=== PATIENT | female | born 1995 | race Hispanic/Latino ===

== ENCOUNTER 2019-02-22 17:10 | Day surgery (SDC) | payer OTHER ==
[2019-02-22 17:48] VITALS: BMI 38.3
[2019-02-22] MEDS ORDERED: hydrALAZINE 20 MG/ML VIAL SLOW IVP PRN (18:29)
--- NOTE | 2019-02-22 19:07 | PDOC.FPROB ---
FMR OB H&P: HPI - History of Present Illness Chief Complaint: Contractions History of Present Illness: Pt is a 23 yo at 38.3 wks by LMP that is consistent with 10.1 wks. says this morning at around 9 am she started having contractions that were 5-10 minutes a part. She said she also experienced some Mid-epigastric pain that felt like a tightening that comes and goes. The contractions went away, but came back later this afternoon and the pt felt like they were 3 minutes apart. She denies any leakage of fluid or blood, but reports mucus. She reports good movement. GBS neg. Primary Care Physician: Yina FMR OB H&P: Current - Care : 1 Para: 0 Gestational age: 38.3 Due date: 03/05/19 Dating Criteria: LMP consistent with US at 10.1 wks. Total weight gain: 25 - OB Labs Blood type: A RH: positive HIV: negative RPR: negative HepBsAg: negative Rubella: non-immune Gonorrhea: negative Chlamydia: negative 1 hour gtt: 94 FMR OB H&P: History - Past Medical History PMH: None - Surgical History Sx History: None - Social History Social History: She does not smoke, drink, or use any recreational drugs. - Family History Family History: None FMR OB H&P: Medications - Current Home Medications: Medication Instructions Recorded Confirmed Type [id number]/Iron Fum/Folic/Docusate 1 tab PO DAILY 02/22/19 02/22/19 History [ 19] Allergies/Adverse Reactions: Allergies Allergy/AdvReac Type Severity Reaction Status Date / Time No Known Allergies Allergy Unverified 02/22/19 17:45 FMR OB H&P: ROS - Review of Systems General: denies: fever/chills Eyes: denies: vision changes ENT: denies: rhinorrhea Cardiovascular: denies: chest pain Respiratory: denies: cough, shortness of breath Gastrointestinal: reports: abdominal pain. denies: nausea, vomiting, diarrhea, constipation Genitourinary (Female): reports: vaginal discharge. denies: dysuria, vaginal bleeding Musculoskeletal: denies: pain Neurologic: denies: numbness, weakness, headache Integumentary: denies: itching, rash Endocrine: denies: cold intolerance Hematologic/Lymphatic: denies: enlarged lymph nodes FMR OB H&P: Vital Signs - Maternal Vital signs: HR: 89 BP: 117/71 Temp: 98 - Heart Tones Baseline: 140 Variability: moderate Acceleration: present Deceleration: absent Category: category 1 FMR OB H&P: Physical Exam - Physical Exam General: NAD HEENT: normocephalic and atraumatic, PERRLA, MMM Neck: supple Chest: non-tender to palpation Heart: RRR, normal S1/S2 General: CTAB, no respiratory distress Abdomen: soft, bowel sound present Deviation from normal: TTP in mid epigastric region, negative mtz's, no rebound or guarding Neurological: cranial nerves II through XII intact, strength +5 Skin: no rash Lymphatic: no unusual bruising or bleeding Psychiatric: normal mood and affect FMR OB H&P: A/P - Problem List (1) Abdominal pain Status: Acute Code(s): R10.9 - UNSPECIFIED ABDOMINAL PAIN Qualifiers: Abdominal location: epigastric Qualified Code(s): R10.13 - Epigastric pain Disposition: Pt is a 23 yo at 38.3 wks by LMP consistent with US at 10.1 wks who presents with abdominal pain and contractions. 1. Abdominal Pain Most likely from contractions * Epigastric tightening sensation that comes and goes * FHT baseline was 140 and cat I with contractions >10 minutes apart * Cerical Check: 0/0/-2 * Discussed with pt indications for coming back to the ER -loss of fluid -bleeding -contractions every 3-5 minutes for at least an hour -decreased movement D/C home Discussion: Date/Time: 02/22/191904 This H&P was discussed with [] and [] who agree with the above documentation and plan.
== END 2019-02-22 19:47 | disposition home or self-care (01) ==
LOC: L&D/OP 17:10
PROVIDERS: ATTEND Student in an Organized Health Care Education/Training Program
DX: O99.89 Other specified diseases and conditions complicating pregnancy, childbirth and the puerperium (principal); R10.13 Epigastric pain; Z3A.38 38 weeks gestation of pregnancy
CPT/HCPCS: 99282

== ENCOUNTER 2019-03-07 02:17 | Day surgery (SDC) | payer OTHER ==
[2019-03-07 02:48] VITALS: BMI 38.7
--- NOTE | 2019-03-07 04:17 | PDOC.FPROB ---
FMR OB H&P: HPI - History of Present Illness Chief Complaint: Contractions Indentification: 23 @ 40.2 by 10.1 US History of Present Illness: Presents to L&D w/ complaint of painful contractions. Pt stated that at 2000 last night she developed lower aching back pain. Then around 0000 this am she woke up with painful contractions. She tried to take a warm bath but felt that this actually worsened the contractions and they began to get closer together prompting her to come in for evaluation. Pt rates her pain at 9/10 w/ contractions and 7/10 between them, describing it as an achy pain in her lower abdomen and back. Pt was last seen by her PCP 3 days ago and was closed thick and high at that time. Pt states her has been uncomplicated. Pt did have a positive chlamydia early in with subsequent negative test of cure. Pt denies any vaginal bleeding, discharge, signs of SROM, recent trauma. Primary Care Physician: Stephanie LU FMR OB H&P: Current - Care : 1 Para: 0 Gestational age: 40.2 Due date: 03/05/2019 Dating Criteria: LMP consistent w/ 10.1wk sono Total weight gain: 25 Course/Complications: +Chlamydia w/ subsequent negative test of cure - OB Labs Blood type: A RH: positive HIV: negative RPR: negative HepBsAg: negative Rubella: non-immune Gonorrhea: negative Chlamydia: negative 1 hour gtt: 94 GBS: negative FMR OB H&P: History - Past Medical History PMH: None - Surgical History Sx History: None - Social History Social History: Denies tobacco, alcohol, or drug use - Family History Family History: Non contributory FMR OB H&P: Medications - Current Home Medications: Medication Instructions Recorded Confirmed Type [id number]/Iron Fum/Folic/Docusate 1 tab PO DAILY 02/22/19 03/07/19 History [ 19] Allergies/Adverse Reactions: Allergies Allergy/AdvReac Type Severity Reaction Status Date / Time No Known Allergies Allergy Verified 03/07/19 02:45 FMR OB H&P: ROS - Review of Systems General: denies: recent trauma Eyes: denies: vision changes, double vision Cardiovascular: reports: edema. denies: chest pain Respiratory: denies: shortness of breath Gastrointestinal: reports: abdominal pain. denies: nausea, vomiting, diarrhea Genitourinary (Female): reports: contractions. denies: vaginal discharge, vaginal pain, vaginal bleeding Musculoskeletal: denies: pain, tenderness Neurologic: denies: weakness, headache Integumentary: denies: rash, lesions FMR OB H&P: Vital Signs - Maternal Vital signs: BP 130/84 HR 83 - Heart Tones Baseline: 130 Variability: moderate Acceleration: present Deceleration: absent Category: category 1 [place] contractions every: 5 FMR OB H&P: Physical Exam - Physical Exam General: NAD HEENT: normocephalic and atraumatic, no scleral icterus Neck: FROM, no JVD Heart: RRR, normal S1/S2, pulses present, no edema General: CTAB, no respiratory distress, good air movement, no rales/rhonchi, no wheezing Abdomen: soft, gravid Deviation from normal: Mild diffuse tenderness Musculoskeletal: normal gait and station, pulses present, FROM in all four extremities Neurological: sensation to pain,touch and proprioception grossly normal Skin: no rash, capillary refill <2 seconds, no jaundice Lymphatic: no unusual bruising or bleeding Psychiatric: intact recent and remote memory, good judgement and insight, normal mood and affect - Pelvic Exam Henriquez score: 10 FMR OB H&P: A/P - Problem List (1) Term Status: Acute Code(s): Z34.90 - ENCNTR FOR SUPRVSN OF NORMAL , UNSP, UNSP TRIMESTER (2) Uterine contractions Status: Acute Code(s): EZW0393 - Disposition: Term - 40.2 wks -Scheduled for induction 03/09/19 -Uncomplicated course -Check on 03/04/19: Closed, thick, high -Check today: 1 -Will have the pt ambulate and recheck in 2 hours from initial check to see if she is making change. If no change will dc home. If making change will continue to monitor for progression of latent stage of labor. Contractions -Uterine contractions confirmed by toco, occurring q 5 min -Pt complaining of pain w/ these Dispo: Monitor on L&D for progression of latent stage of labor Discussion: Date/Time: 03/07/19 9750 This H&P was discussed with Dr. Nuñez and Dr. Torres who agree with the above documentation and plan. Signature: Jerman Meng D.O. PGY1 Addendum - Attending - Attending Attestation Date/Time: 03/07/19 0802 I personally evaluated the patient and discussed the management with Dr. Meng I agree with the History, Examination, Assessment and Plan documented above with any addition or exceptions noted below- 23 yo @40.2 weeks presented c /o ctx since last night. Denies any LOF, VB. (+) FM. Afebrile VSS. Category 1 FHTs. [place] ctx q3-7 min. SVE /-1. Walked x 2 hours with no cervical change. D/c'd home with labor precautions.
[2019-03-07] MEDS ORDERED: hydrALAZINE 20 MG/ML VIAL SLOW IVP PRN (04:18)
== END 2019-03-07 07:30 | disposition home or self-care (01) ==
LOC: L&D/OP 02:17 → L&D 02:55 → UNDOADMIN 02:55 → UNDODISIN 07:30 → L&D/OP 07:30
PROVIDERS: ATTEND Family Medicine
DX: O47.1 False labor at or after 37 completed weeks of gestation (principal); O48.0 Post-term pregnancy; Z3A.40 40 weeks gestation of pregnancy
CPT/HCPCS: 99283

== ENCOUNTER 2019-03-09 10:53 | Inpatient (IN) | payer OTHER ==
[2019-03-09] MEDS ORDERED: hydrALAZINE 20 MG/ML VIAL SLOW IVP PRN ×2 (11:05→12:53)
[2019-03-09 11:24] VITALS: BMI 38.7
[2019-03-09 12:03] LABS: Amnisure Test RUPTURE DETECTED (No Rupture)
[2019-03-09 12:04] LABS: Amnisure Internal Control QC ACCEPTABLE (ACCEPTABLE)
[2019-03-09] MEDS ORDERED: Methylergonovine 0.2 MG/ML VIAL IM PRN (12:53)
[2019-03-09] MEDS ORDERED: NS / Oxytocin 40 units/1000ml 1,000 ML IV PRN (12:53)
[2019-03-09] MEDS ORDERED: Promethazine HCl 25 MG/ML VIAL IM PRN (12:53)
[2019-03-09] MEDS ORDERED: Acetaminophen 500 MG TAB PO PRN (12:53)
[2019-03-09] MEDS ORDERED: Ondansetron PF 4 MG/2 ML Vial IVP PRN (12:53)
[2019-03-09] MEDS ORDERED: Carboprost 250 MCG/ML AMP IM PRN (12:53)
[2019-03-09] MEDS ORDERED: Ibuprofen 800 MG TAB PO PRN (12:53)
[2019-03-09] MEDS ORDERED: Diphenoxylate HCl/Atropine Tablet PO PRN ×2 (12:53)
[2019-03-09] MEDS ORDERED: Misoprostol 200 MCG TAB PR PRN (12:53)
[2019-03-09] MEDS ORDERED: Lidocaine 1% (PF) 30 ML VIAL SC PRN (12:53)
--- NOTE | 2019-03-09 12:53 | PDOC.FPROB ---
FMR OB H&P: HPI - History of Present Illness Chief Complaint: contractions History of Present Illness: 23 yo @ 40.4 wks presents for contractions. Reports contractions began at 0200 this am. Pt unsure how frequent but mother reports they were q5-7 min. Has had one contraction since on L&D. Patient also reports clear fluid running down leg while on L&D at 11:15. Denies vaginal discharge, bleeding. Feels FM. Legs and hands swollen which has been consistent throughout . Primary Care Physician: Stephanie LU FMR OB H&P: Current - Care : 1 Para: 0 Gestational age: 40.4 Due date: 03/05/2019 Dating Criteria: LMP c/w 10.1 wk US - OB Labs Blood type: A RH: positive Antibody Screen: negative HIV: negative RPR: negative HepBsAg: negative Rubella: immune Gonorrhea: negative Chlamydia: negative GBS: negative FMR OB H&P: History - Past Medical History PMH: none - GROUNDSKEEPER History GROUNDSKEEPER History: low lying placenta, resolved - Surgical History Sx History: None - Social History Social History: No tobacco, alcohol, drug use. - Family History Family History: Denies FMR OB H&P: Medications - Current Home Medications: Medication Instructions Recorded Confirmed Type [id number]/Iron Fum/Folic/Docusate 1 tab PO DAILY 02/22/19 03/09/19 History [ 19] Allergies/Adverse Reactions: Allergies Allergy/AdvReac Type Severity Reaction Status Date / Time No Known Allergies Allergy Verified 03/09/19 11:21 FMR OB H&P: ROS - Review of Systems General: denies: weight/appetite/sleep changes Eyes: denies: vision changes, [place] Cardiovascular: reports: edema. denies: chest pain, palpitation Respiratory: denies: cough, shortness of breath Gastrointestinal: reports: cramping. denies: abdominal pain, nausea, vomiting Genitourinary (Female): reports: contractions. denies: vaginal discharge, vaginal pain, vaginal bleeding Musculoskeletal: reports: pain, stiffness Neurologic: denies: weakness, headache Integumentary: denies: rash FMR OB H&P: Vital Signs - Maternal Vital signs: 127/82, 74 - Heart Tones Baseline: 141 Variability: moderate Acceleration: present Deceleration: absent Category: category 1 [place] contractions every: 6-8 min FMR OB H&P: Physical Exam - Physical Exam General: NAD, awake, alert and oriented HEENT: normocephalic and atraumatic Heart: RRR, normal S1/S2, other (2+ pitting edema BLE, edema in hands) General: CTAB, no respiratory distress Abdomen: soft, gravid, bowel sound present - Pelvic Exam Vulva: normal hair distribution SVE: 50/-1, clear discharge but no pooling of fluid and negative cough test FMR OB H&P: Results - Labs Lab results: Laboratory Results - last 24 hr 03/09/19 11:40 Amnio Swab Test RUPTURE DETECTED H FMR OB H&P: A/P - Problem List (1) SROM (spontaneous rupture of membranes) Current Visit: Yes Status: Acute Code(s): [id number] - (2) Term Current Visit: No Status: Acute Code(s): Z34.90 - ENCNTR FOR SUPRVSN OF NORMAL , UNSP, UNSP TRIMESTER (3) Uterine contractions Current Visit: No Status: Acute Code(s): [id number] - Discussion: 23 yo G1 @ 40.4 wks presents with contractions and complains of LOF on L&D. sIUP, post-dates with SROM - amnisure positive, SROM at 11:15 - ctx were sporadic and now q6 min, increasing in pain and intensity - /-1, bishops 6 - CAT1 strip - Patient desires to hold out on epidural until contractions become too painful - Plans to breast and bottle feed Dispo: Admit to L&D and start pitocin for augmentation. This H&P was discussed with Dr. Young who agree with the above documentation and plan.
[2019-03-09] MEDS ORDERED: NS w/ Oxytocin 10 units 500 ML IV SCH (13:00)
[2019-03-09 13:27] LABS: Hemoglobin 11.6 g/dL (12.0-16.0); Mean Corpuscular HGB CONC 34.6 g/dL (32.0-36.0); Mean Corpuscular Hemoglobin 31.2 pg (27.0-31.0); Mean Corpuscular Volume 90.2 fL (78.0-98.0); Mean Platelet Volume 8.5 fL (7.4-10.4); Platelet Count 260 thou/uL (130-400); RBC Distribution Width 12.3 % (11.5-14.5); Red Blood Cell (RBC) Count 3.71 mill/uL (4.20-5.40)
[2019-03-09] MEDS ORDERED: Misoprostol 100 MCG TAB ONE (13:51)
[2019-03-09 14:12] LABS: Syphilis Antibody Nonreactive (Nonreactive); Syphilis Antibody Index 0.06 S/CO (<1.00 Non-Reactive)
[2019-03-09 14:13] LABS: HBSAg Index 0.18 S/CO (0-0.99); Hep B Surf Ag Non-Reactive S/CO (NonReactive)
[2019-03-09] MEDS: Lactated Ringer's 1,000 ML IV SCH (16:42)
[2019-03-09] MEDS ORDERED: Bupivacaine 0.25% HCL 30 ML VIAL ONE (17:37)
[2019-03-09] MEDS ORDERED: Bupivacaine HCl 0.5%/Epinephrine 1:200,000/PF 30 ml Vial ONE (17:37)
--- NOTE | 2019-03-09 19:32 | PDOC.LDPN ---
Labor & Delivery Progress Note - Subjective Subjective: painful contractions - Objective Vital signs reviewed and normal: yes General: breathing through contractions Uterine fundus: non tender Dilation: 3.5 Effacement: 75% Station: -1 FHT: category 1 (Baseline 140, Accels Present, No decels ) - Assessment (1) Term Code(s): Z34.90 - ENCNTR FOR SUPRVSN OF NORMAL , UNSP, UNSP TRIMESTER Current Visit: No Status: Acute Plan: continue plan of care, resuscitative measures -: sIUP, post-dates with SROM - Ct every 2-3 minutes - 3.5 / 75% / -1 - Consider pitocin augmentation at next check depending on cervical change and clinical status. - CAT1 strip - Patient desires to hold out on epidural until contractions become too painful - Plans to breast and bottle feed - Continue q4h checks Disposition: Continue current plan of care.
[2019-03-09] MEDS ORDERED: Fentanyl 4 mcg/Bup 0.1% Cadd 0 ML ONE (20:29)
--- NOTE | 2019-03-09 21:26 | PDOC.LDPN ---
Labor & Delivery Progress Note - Subjective Subjective: painful contractions - Objective Vital signs reviewed and normal: yes General: NAD Uterine fundus: non tender Dilation: 3.5 Effacement: 75% Station: -1 FHT: category 1 (Baseline 140, Accels present, No decels ) [place] contractions every: 2-3 minutes - Assessment (1) Term Code(s): Z34.90 - ENCNTR FOR SUPRVSN OF NORMAL , UNSP, UNSP TRIMESTER Current Visit: No Status: Acute Plan: continue plan of care, pitocin for augmentation -: sIUP, post-dates with SROM - Ct every 2-3 minutes - 3.5 / 75% / -1 - Initiated Pitocin. - CAT1 strip - Patient desires to hold out on epidural until contractions become too painful - Plans to breast and bottle feed - Continue q4h checks Disposition: Continue current plan of care with labor augmentation.
[2019-03-10] MEDS: Butorphanol Tartrate 1 MG/ML VIAL SLOW IVP PRN ×4 (02:15→08:18)
[2019-03-10] MEDS: Lactated Ringer's 1,000 ML IV SCH ×2 (03:00→21:24)
--- NOTE | 2019-03-10 04:22 | PDOC.LDPN ---
Labor & Delivery Progress Note - Subjective Subjective: painful contractions - Objective Vital signs reviewed and normal: yes General: NAD Dilation: 5 Effacement: 75% (80) Station: -1 FHT: category 1 (Baseline 140, Accels present, No decels ) [place] contractions every: 2-3 minutes - Assessment (1) Term Code(s): Z34.90 - ENCNTR FOR SUPRVSN OF NORMAL , UNSP, UNSP TRIMESTER Current Visit: No Status: Acute Plan: pitocin for augmentation -: sIUP, post-dates with SROM - Ct every 2-3 minutes - 5 / 80% / -1 - Pitocin @ 10 currently - CAT1 strip - Patient desires to hold out on epidural until contractions become too painful - Plans to breast and bottle feed - Continue q2h checks Disposition: Continue current plan of care with labor augmentation.
--- NOTE | 2019-03-10 06:24 | PDOC.LDPN ---
Labor & Delivery Progress Note - Subjective Subjective: painful contractions - Objective Vital signs reviewed and normal: yes General: NAD Uterine fundus: non tender Dilation: 6 Effacement: 90% Station: -1 FHT: category 1 (Baseline 140, No decels, Acels present. ) - Assessment (1) Term Code(s): Z34.90 - ENCNTR FOR SUPRVSN OF NORMAL , UNSP, UNSP TRIMESTER Current Visit: No Status: Acute Plan: continue plan of care, pitocin for augmentation -: sIUP, post-dates with SROM - Ct every 2-3 minutes - 6 / 90% / -1 - Pitocin @ 14 currently - CAT1 strip - Patient desires to hold out on epidural until contractions become too painful - Plans to breast and bottle feed - Continue q2h checks Disposition: Continue current plan of care with labor augmentation.
[2019-03-10] MEDS ORDERED: Ondansetron PF 4 MG/2 ML Vial ONE ×2 (12:06→19:51)
[2019-03-10] MEDS ORDERED: Ketorolac Tromethamine 30 MG/ML VIAL ONE ×2 (12:06→19:51)
[2019-03-10] MEDS ORDERED: Lidocaine 2% PF 5 ML VIAL ONE (12:06)
[2019-03-10] MEDS ORDERED: Dexamethasone 20 MG/5 ML VIAL ONE (12:06)
--- NOTE | 2019-03-10 12:13 | PDOC.LDPN ---
Labor & Delivery Progress Note - Subjective Subjective: painful contractions, vaginal pressure - Objective Vital signs reviewed and normal: yes General: breathing through contractions Dilation: 6 Effacement: 90% Station: -1 FHT: category 1 [place] contractions every: 2-4 min AROM: clear fluid - Assessment (1) SROM (spontaneous rupture of membranes) Code(s): [id number] - Current Visit: Yes Status: Acute (2) Term Code(s): Z34.90 - ENCNTR FOR SUPRVSN OF NORMAL , UNSP, UNSP TRIMESTER Current Visit: No Status: Acute (3) Uterine contractions Code(s): [id number] - Current Visit: No Status: Acute Plan: pitocin for augmentation -: sIUP, post-dates with SROM - Ct every 2-3 minutes - 6 / 90% / -1 @ 0830 with AROM of remaining bag with clear fluid - 8/90/-1 @ 11:20 per nurse check - Pitocin @ 14 currently - CAT1 strip - Patient desires to hold out on epidural until contractions become too painful - Plans to breast and bottle feed - Continue q2h checks Disposition: Continue current plan of care with labor augmentation.
--- NOTE | 2019-03-10 15:33 | PDOC.LDPN ---
Labor & Delivery Progress Note - Subjective Subjective: comfortable, painful contractions, vaginal pressure - Objective Vital signs reviewed and normal: yes General: resting, breathing through contractions Dilation: 9 cm Effacement: 100% Station: 0 FHT: category 2 [place] contractions every: q2-3 mins - Assessment (1) SROM (spontaneous rupture of membranes) Code(s): [id number] - Current Visit: Yes Status: Acute (2) Term Code(s): Z34.90 - ENCNTR FOR SUPRVSN OF NORMAL , UNSP, UNSP TRIMESTER Current Visit: No Status: Acute (3) Uterine contractions Code(s): [id number] - Current Visit: No Status: Acute Plan: continue plan of care -: 1400 pt was 10cm / 100%/ 0 station with contractions q2-3 minutes. Category II strip - Baseline 150, minimal - moderate variability, accelerations present. Will recheck. Addendum - Attending - Attending Attestation Date/Time: 03/10/19 3178 I personally discussed the management with Dr. Chiu. I agree with the History, Examination, Assessment and Plan documented above with any addition or exceptions noted below. Over the course of the afternoon, the FHTs ahve had a normal baseline, with periods of minimal variabiliy that recover to moderate variability. Aces present. FHT's then have been predominantly Cat 1. See separate note fro more recent developments.
--- NOTE | 2019-03-10 15:49 | PDOC.LDPN ---
Labor & Delivery Progress Note - Subjective Subjective: painful contractions, vaginal pressure - Objective Vital signs reviewed and normal: yes Abnormal vital signs: pulse ~120, 133 systolic General: breathing through contractions Effacement: 100% Station: 0 FHT: category 1, variability present [place] contractions every: q 2-4 mins IUPC placed: yes (Contractions are not adequate at this time.) - Assessment (1) SROM (spontaneous rupture of membranes) Code(s): [id number] - Current Visit: Yes Status: Acute (2) Term Code(s): Z34.90 - ENCNTR FOR SUPRVSN OF NORMAL , UNSP, UNSP TRIMESTER Current Visit: No Status: Acute (3) Uterine contractions Code(s): [id number] - Current Visit: No Status: Acute Plan: continue plan of care, pitocin for augmentation -: Pt is 9/100%/0 at 1315. IUPC was placed and pt is not producing adequate contractions, contractions are q2-4 mins and painful. Strip is Cat 1 with moderate variability, accelerations. Pt does not have epidural. At this time pitocin has been increased to 16. Will continue to monitor for adequate contractions.
--- NOTE | 2019-03-10 16:28 | PDOC.LDPN ---
Labor & Delivery Progress Note - Subjective Subjective: painful contractions, vaginal pressure - Objective Vital signs reviewed and normal: yes Abnormal vital signs: Pulse 88, Systolic BP 133 General: breathing through contractions Dilation: 9 cm Effacement: 100% Station: 0 FHT: category 2, variability present [place] contractions every: q2-4 minutes Other exam findings: Heart Rate 160 IUPC placed: yes - Assessment (1) SROM (spontaneous rupture of membranes) Code(s): [id number] - Current Visit: Yes Status: Acute (2) Term Code(s): Z34.90 - ENCNTR FOR SUPRVSN OF NORMAL , UNSP, UNSP TRIMESTER Current Visit: No Status: Acute (3) Uterine contractions Code(s): QTF0944 - Current Visit: No Status: Acute (4) tachycardia Code(s): [id number] - Current Visit: Yes Status: Acute Plan: continue plan of care -: # Term, SROM, Active Labor, 9/100%/0, Tachycardia - at this time will stop pit for an hour then reassess, incorporate position changes, and give fluid bolus. Pt is afebrile, will continue to monitor considering prolonged rupture of membranes. Baseline rate is 160-165 with moderate variability, Category II strip. Pt remains uninterested in epidural at this time. Addendum - Attending - Attending Attestation Date/Time: 03/10/19 3084 I personally discussed the management with Dr. Chiu. I agree with the History, Examination, Assessment and Plan documented above with any addition or exceptions noted below. Luisa now has developed Cat 2 tracing. Will stop pitocin, make position changes and give fluids. Reassess.
[2019-03-10] MEDS ORDERED: Fentanyl 4 mcg/Bup 0.1% Cadd 100 ML ONE (16:42)
[2019-03-10] MEDS ORDERED: Lidocaine 1.5%/Epinephrine 1:200,000 5 ML AMPUL IJ ONE (16:42)
[2019-03-10] MEDS ORDERED: Naloxone HCl 0.4 mg/ml Vial IVP PRN ×4 (18:07→20:14)
[2019-03-10] MEDS ORDERED: Acetaminophen 325 MG TAB PO PRN (18:07)
[2019-03-10] MEDS ORDERED: Lactated Ringer's 500 ML IV PRN (18:07)
[2019-03-10] MEDS ORDERED: Promethazine HCl 25 MG/ML VIAL IM PRN ×2 (18:07→20:14)
[2019-03-10] MEDS ORDERED: Ondansetron PF 4 MG/2 ML Vial IVP PRN ×2 (18:07→20:14)
[2019-03-10] MEDS ORDERED: ePHEDrine/0.9% NaCl/PF SYRINGE 50 mg/10 ml SLOW IVP PRN (18:07)
[2019-03-10] MEDS ORDERED: diphenhydrAMINE 50 MG/ML VIAL IVP PRN ×2 (18:07→20:14)
[2019-03-10] MEDS: SODIUM CHLORIDE 0.9% IVPB SCH ×2 (18:11→19:12)
[2019-03-10] MEDS: Ampicillin 2 GM in Sodium Chloride 0.9% 100 ML IVPB SCH (18:11)
[2019-03-10] MEDS: GENTAMICIN SULFATE IVPB SCH ×2 (18:11→19:12)
[2019-03-10] MEDS ORDERED: Fentanyl 4 mcg/Bupivacaine 0.1% Cassette 100 ML EPIDURAL SCH (18:15)
[2019-03-10] MEDS ORDERED: Communication Order-Pharmacy FS SCH ×2 (18:15→20:15)
[2019-03-10] MEDS ORDERED: Bicitra 30 ML UDCUP ONE (19:27)
--- NOTE | 2019-03-10 19:30 | PDOC.LDPN ---
Labor & Delivery Progress Note - Subjective Subjective: comfortable - Objective Vital signs reviewed and normal: yes Dilation: FHT: category 1 (Baseline 150, Accels present, no decels) - Assessment (1) Term Code(s): Z34.90 - ENCNTR FOR SUPRVSN OF NORMAL , UNSP, UNSP TRIMESTER Current Visit: No Status: Acute (2) Chorioamnionitis Code(s): O41.1290 - CHORIOAMNIONITIS, UNSP TRIMESTER, NOT APPLICABLE OR UNSP Current Visit: Yes Status: Acute (3) Failure to progress in labor Code(s): O62.2 - OTHER UTERINE INERTIA Current Visit: Yes Status: Acute Plan: other -: 1. TIUP - 40w5d - Plan for delivery at this time - Cat 1 strip 2. Chorioamnionitis - Continue antibiotics - IVF as needed - Will monitor infant closely after delivery 3. Failure to Progress - Check now - Cervical swelling - risks and benefits discussed at length of delivery - Patient has chosen to pursue delivery Disposition: Stable, will plan to proceed with
[2019-03-10] MEDS ORDERED: Lidocaine 2% 10 ML INJ ONE (19:41)
[2019-03-10] MEDS ORDERED: EPINEPHrine 1 MG/ML AMP ONE (19:41)
[2019-03-10] MEDS ORDERED: Bicitra 30 ML UDCUP PO SCH (19:45)
[2019-03-10] MEDS ORDERED: Fentanyl 100 MCG/2 ML VIAL ONE (19:51)
[2019-03-10] MEDS ORDERED: Dexamethasone 4 mg/ml Vial ONE (19:51)
[2019-03-10] MEDS ORDERED: Oxytocin 10 UNITS/ML VIAL ONE (19:51)
[2019-03-10] MEDS ORDERED: ePHEDrine/0.9% NaCl/PF SYRINGE 50 mg/10 ml ONE (19:52)
[2019-03-10] MEDS ORDERED: PHENYLEPHRINE-NS 100 MCG/ML 10 ML SYRINGE ONE (19:52)
[2019-03-10] MEDS ORDERED: MORPHINE 5 MG/10 ML PF VIAL ONE (19:56)
[2019-03-10] MEDS ORDERED: Promethazine HCl 25 MG SUPP PR PRN (20:14)
[2019-03-10] MEDS ORDERED: Ondansetron HCl/PF 4 MG/2 ML Vial IVP PRN (20:14)
[2019-03-10] MEDS ORDERED: Ketorolac Tromethamine 30 MG/ML VIAL IVP PRN (20:14)
[2019-03-10] MEDS ORDERED: HYDROmorphone 2 MG/ML VIAL SLOW IVP PRN (20:14)
[2019-03-10] MEDS ORDERED: L&D-Morphine 4 MG/ML VIAL SLOW IVP PRN (20:14)
[2019-03-10] MEDS ORDERED: Meperidine HCl/PF 25 MG/ML VIAL SLOW IVP PRN (20:14)
[2019-03-10] MEDS ORDERED: Naloxone HCl 0.4 mg/ml Vial IV PRN (20:14)
[2019-03-10] MEDS ORDERED: Ketorolac Tromethamine 30 MG/ML VIAL IVP SCH (20:15)
[2019-03-10] MEDS ORDERED: Carboprost 250 MCG/ML AMP ONE (20:49)
[2019-03-10] MEDS: Misoprostol 100 MCG TAB VAG SCH ×2 (21:23→21:24)
--- NOTE | 2019-03-10 21:45 | PDOC.OPDEL ---
OB Operative/Delivery Note Delivery Dr/Surgeon: Aram Torres Zivney Assist: Ben Pre-Delivery Diagnosis: arrest of dilation Procedure/Post Delivery Dx: primary low transverse CS Weeks gestation: 40 (40.5) Anesthesia: epidural - Additional Findings/Plan Placenta delivered: spontaneous findings: low transverse hysterotomy with extension, normal uterus, normal tubes, normal ovaries Compilations/Other Findings: Procedure Note Date of Procedure: 03/10/2019 Resident Surgeon: Aram Plate Drying Machine Tender Surgeon: Ben Attending Surgeon: Melissa Procedure: Primary low transverse caesarean section via Pfannensteil incision Preoperative Diagnosis: 1) Term intrauterine 2) Chorioamnionitis 3) Arrest of dilation 4) Prolonged rupture of membranes Postoperative Diagnosis: 1) same as above 2) hemorrhage Anesthesia: spinal Indications: The patient is a 23 year old female at 40.5 weeks gestation who presented with SROM and due to arrest of dilation underwent a primary c- section. Procedure in Detail: After risks, benefits, and alternatives were explained to the patient, she gave informed consent. Pre-operative antibiotics included Cefazolin 2 gram IV. The patient was taken to the operating room and spinal anesthesia was initiated. She was placed in the supine position with a left tilt and prepped and draped in usual sterile fashion. A Pfannenstiel incision was made with a scalpel and carried down to the level of the fascia which was sharply nicked. The fascial cut was extended bilaterally with [place] sissors. The inferior and superior edges of the cut fascial edges were elevated with Maggie clamps and the underlying rectus muscles were sharply and bluntly dissected free. The recti were divided digitally and retracted manually. The peritoneum was entered bluntly and retracted manually. Bladder blade was placed. Bladder flap was created with Metzenbaum scissors. A low transverse score was made with the scalpel and the uterus was entered in the midline with the scalpel. Clear fluid was seen. The hysterotomy was extended manually. The infant was noted to be vertex and LOP position was easily delivered by fundal pressure. Mouth and nares were bulb suctioned. Cord clamped and cut and grossly normal male infant was handed to waiting nurse. Cord blood was obtained. Placenta was manually extracted, found to be intact with 3 vessel cord and discarded. The uterus was externalized and the endometrium was curetted with a dry lap. The bladder blade was replaced and the uterus was closed with a running locking 0-Vicryl. There was an extention from the left angle towards cervix. This was closed with several figure of eight stitches using 0-chromic by Dr. Arrington. Please see his separate dictation for further details. One dose of hemabate given. Two figure of eight stitches were additionally placed at the right angle. Following this hemostasis was noted. The abdomen was irrigated with saline and suctioned free of clots. The uterus was internalized and the hysterotomy was again noted to be hemostatic. Peritoneum was closed with 2-0 chromic. The fascia was closed with a running non-locking 0-Vicryl suture. The subcutaneous tissue was irrigated and there were no bleeders. Three interrupted subcuticular stitches with 2-0 plain suture. The skin was approximated with milton and a pressure dressing was placed. All counts were correct. The patient tolerated the procedure well and was taken to the recovery room in stable condition. Quantitative Blood Loss: 2065 ml Complications: hemorrhage Specimens: Cord blood sent to lab for blood type as well as cord gas Findings: Grossly normal male infant with Apgars of 8 and 8 with delivery time of 20:26. Grossly normal placenta and sent for pathology review. Drains: Daily to gravity draining clear urine Post delivery plan: routine recovery Addendum - Attending - Attending Attestation Date/Time: 03/10/19 0988 I assisted with the 1* LCT C/S to this 23 yo female @ 40.5weeks for arrest of active phase and intra-amniotic infection. Viable male was delivered in vertex presentation with LOP position. Apgars 8/8. Extension of incision along left side towards cervix repaire with several figure of [address] Arrington's assistance. Good hemostasis obtained and closure completed without difficulty. QBL= 2065 mL. Infant to nursery and mother to RR in stable condition. Resident: Aram/Ben
[2019-03-10] MEDS: Azithromycin 500 MG in Sodium Chloride 0.9% 250 ML 250 ML IVPB SCH (21:57)
[2019-03-11] MEDS ORDERED: HYDROcodone/Acetaminophen 5/325 mg Tablet PO PRN (00:01)
[2019-03-11] MEDS: Misoprostol 100 MCG TAB VAG SCH (00:43)
[2019-03-11] MEDS: Ampicillin 2 GM in Sodium Chloride 0.9% 100 ML IVPB SCH ×4 (00:59→17:41)
[2019-03-11 04:31] LABS: #Lymphocytes 1.4 thou/uL (1.20-3.40); #Monocytes 0.5 thou/uL (0.11-0.59); #Neutrophils 15.9 thou/uL (1.40-6.50); %Basophils 0.1 % (0.0-1.0); %Eosinophils 0.1 % (0.0-10.0); %Lymphocytes 7.8 % (21.0-51.0); Hemoglobin 9.1 g/dL (12.0-16.0); Mean Corpuscular HGB CONC 35.2 g/dL (32.0-36.0); Mean Corpuscular Hemoglobin 32.2 pg (27.0-31.0); Mean Corpuscular Volume 91.3 fL (78.0-98.0); Mean Platelet Volume 8.4 fL (7.4-10.4); Platelet Count 226 thou/uL (130-400); RBC Distribution Width 12.6 % (11.5-14.5); Red Blood Cell (RBC) Count 2.82 mill/uL (4.20-5.40); White Blood Cell (WBC) Count 17.9 thou/uL (4.8-10.8)
[2019-03-11] MEDS: Ibuprofen 800 MG TAB PO SCH ×3 (05:56→22:00)
--- NOTE | 2019-03-11 06:35 | PDOC.PP ---
Post Progress Note Post Day #: 1 Subjective: 23 yo ->1 delivered HARDY male at 20:26 on 03/10/19 via LTCS due to failure to progress and intra-amniotic infection. Mom currently denies any pain. She has not been up to ambulate yet due to fatigue. She is hoping to breast feed with bottle feed supplementation. She denies fever, chills, headache, vision changes, chest pain, sob, or swelling. No other complaints. PO intake tolerated: yes Flatus: no Ambulation: no Vital Signs (12 hours) Temp Pulse Resp BP Pulse Ox 03/11/19 04:58 98.0 F 98 18 116/67 98 03/11/19 02:30 89 18 125/71 03/11/19 01:14 86 18 141/89 H 03/11/19 00:01 98.4 F 78 18 131/70 97 Weight Weight 87.09 kg - Physical Examination General: NAD Cardiovascular: no m/r/g, RRR Respiratory: clear to auscultation bilaterally, non-labored breathing Abdominal: + bowel sounds, lochia, no distention, appropriately TTP Skin: CS incision dry & intact, no rash Neurological: no gross focal deficits Psychiatric: A&Ox3, normal affect Result Diagrams: 03/11/19 03:51 Additional Labs: Post Labs Blood Type A POSITIVE 03/09/19 13:56 Hep Bs Antigen Non-Reactive S/CO (NonReactive) 03/09/19 13:09 Rubella IgG Antibody 1.78 index (Immune >0.99) 03/09/19 13:09 (1) Term delivered Code(s): O80 - ENCOUNTER FOR FULL-TERM UNCOMPLICATED DELIVERY Status: Acute (2) Delivery by section Code(s): [id number] - Status: Acute (3) hemorrhage Code(s): O72.1 - OTHER IMMEDIATE HEMORRHAGE Status: Acute (4) Chorioamnionitis Code(s): O41.1290 - CHORIOAMNIONITIS, UNSP TRIMESTER, NOT APPLICABLE OR UNSP Status: Acute - Assessment/Plan 1. TIUP, delivered via LTCS - 40w5d - Recommend routine care 2. Chorioamnionitis - Continue antibiotics - IVF as needed - Supplemental care as needed. 3. Hemorrhage - QBL from delivery 2064 - Hemoglobin this AM 9.1 down from 11.6 - Will consider repeating if patient become symptomatic Disposition: Stable, will continue current plan of care.
--- NOTE | 2019-03-11 08:29 | CON ---
DATE OF CONSULTATION: REQUESTING PHYSICIAN: Tanvi Torres MD CONSULTING PHYSICIAN: Natalio Arrington MD I was asked to come to the OR to see this patient for bleeding from the uterine incision. This patient was undergoing a primary for failure to progress with chorioamnionitis. Bladder blade was inserted and the area was retracted, so that it could be seen at this point that she had an extension of the left angle approximately 2-3 cm into the cervix. Interrupted chromic sutures were placed both above and below the area of extension and hemostasis was easily obtained. The opposite angle was also seen to have bleeding and a series of interrupted sutures in this area controlled that bleeding as well. At the conclusion, her hysterotomy incision was hemostatic. The clots were cleared from the pelvis and from the anterior cul-de-sac, and the uterus was replaced in the abdominal cavity. The uterine incision was again reviewed and was noted to be hemostatic. The case was then returned to Dr. Torres for closure of the anterior abdominal wall and skin. Job ID: [id number]
[2019-03-11] MEDS: HYDROcodone/Acetaminophen 5/325 mg Tablet PO PRN ×2 (10:09→13:53)
[2019-03-11] MEDS: Prenatal Vitamin 1 TAB PO SCH (10:10)
[2019-03-11] MEDS: Azithromycin 500 MG in Sodium Chloride 0.9% 250 ML 250 ML IVPB SCH (20:14)
[2019-03-11] MEDS ORDERED: Adacel (T-DAP) 0.5 ML SYRINGE IM ONE (21:00)
[2019-03-12] MEDS: Ampicillin 2 GM in Sodium Chloride 0.9% 100 ML IVPB SCH ×4 (00:09→17:31)
[2019-03-12] MEDS ORDERED: hydrALAZINE 20 MG/ML VIAL SLOW IVP PRN (01:45)
[2019-03-12] MEDS: Ibuprofen 800 MG TAB PO SCH ×3 (06:07→21:51)
--- NOTE | 2019-03-12 07:02 | PDOC.PP ---
Post Progress Note Post Day #: 2 Subjective: 23 yo ->1 delivered NELA male at 20:26 on 03/10/19 via LTCS due to failure to progress and intra-amniotic infection. Today mother complains of increased pain and soreness. She reports minimal lochia. Patient reports otherwise she is feeling well. She denies lightheadedness, SOB, fevers, chills, headache, vision changes, or lower extremity swelling. No other complaints. PO intake tolerated: yes Flatus: yes Ambulation: yes Vital Signs (12 hours) Temp Pulse Resp BP Pulse Ox 03/12/19 04:00 98.7 F 97 16 112/66 97 03/12/19 00:09 99.4 F 109 H 16 114/63 98 03/11/19 20:00 97 03/11/19 19:10 98.8 F 101 H 16 106/65 97 Weight Weight 87.09 kg - Physical Examination General: NAD Cardiovascular: no m/r/g, RRR Respiratory: clear to auscultation bilaterally, non-labored breathing Abdominal: + bowel sounds, lochia, no distention, appropriately TTP Fundus firm & at: below umbilicus Skin: CS incision dry & intact, no rash Neurological: no gross focal deficits Psychiatric: A&Ox3, normal affect Result Diagrams: 03/11/19 03:51 Additional Labs: Post Labs Blood Type A POSITIVE 03/09/19 13:56 Hep Bs Antigen Non-Reactive S/CO (NonReactive) 03/09/19 13:09 Rubella IgG Antibody 1.78 index (Immune >0.99) 03/09/19 13:09 (1) Term delivered Code(s): O80 - ENCOUNTER FOR FULL-TERM UNCOMPLICATED DELIVERY Status: Acute (2) Delivery by section Code(s): [id number] - Status: Acute (3) hemorrhage Code(s): O72.1 - OTHER IMMEDIATE HEMORRHAGE Status: Acute (4) Chorioamnionitis Code(s): O41.1290 - CHORIOAMNIONITIS, UNSP TRIMESTER, NOT APPLICABLE OR UNSP Status: Acute - Assessment/Plan 1. TIUP, delivered via LTCS - 40w5d - Recommend routine care 2. Chorioamnionitis - Continue antibiotics - IVF as needed - Supplemental care as needed. 3. Hemorrhage - QBL from delivery 2064 - Patient not symptomatic - Will consider repeating if patient become symptomatic Disposition: Stable, will continue current plan of care and plan for discharge tomorrow. Addendum - Attending - Attending Attestation Date/Time: 03/13/19 0257 I personally evaluated the patient and discussed the management with Dr. Denson on 03/12. I agree with the History, Examination, Assessment and Plan documented above with any addition or exceptions noted below. No f/c, abd with no unusual TTP. Will d/c antibiotics, hopeful d/c in AM.
[2019-03-12] MEDS: Prenatal Vitamin 1 TAB PO SCH (09:08)
[2019-03-12] MEDS: HYDROcodone/Acetaminophen 5/325 mg Tablet PO PRN (17:36)
[2019-03-12] MEDS: Azithromycin 500 MG in Sodium Chloride 0.9% 250 ML 250 ML IVPB SCH (19:55)
[2019-03-13] MEDS: Ibuprofen 800 MG TAB PO SCH ×2 (05:49→16:45)
[2019-03-13 08:22] VITALS: TEMP 98.2
[2019-03-13] MEDS: Prenatal Vitamin 1 TAB PO SCH (08:53)
--- NOTE | 2019-03-13 12:44 | PDOC.PP ---
Post Progress Note Post Day #: 3 Subjective: Pt doing well, no f/c/or sig pain. Mild swelling BLE, no MURRIETA/SOB or leg pain. PO intake tolerated: yes Flatus: yes Ambulation: yes Vital Signs (12 hours) Temp Pulse Resp BP BP Pulse Ox 03/13/19 07:50 98.2 F 82 16 122/72 98 03/13/19 04:33 98.6 F 82 14 121/67 98 Weight Weight 87.09 kg - Physical Examination General: NAD Cardiovascular: no m/r/g, RRR Respiratory: clear to auscultation bilaterally, non-labored breathing Abdominal: + bowel sounds, appropriately TTP Extremities: negative homans (B) (neg dewey; no cord; mild pedal edema) Result Diagrams: 03/11/19 03:51 Additional Labs: Post Labs Blood Type A POSITIVE 03/09/19 13:56 Hep Bs Antigen Non-Reactive S/CO (NonReactive) 03/09/19 13:09 Rubella IgG Antibody 1.78 index (Immune >0.99) 03/09/19 13:09 (1) Term delivered Code(s): O80 - ENCOUNTER FOR FULL-TERM UNCOMPLICATED DELIVERY Status: Acute (2) Delivery by section Code(s): [id number] - Status: Acute (3) hemorrhage Code(s): O72.1 - OTHER IMMEDIATE HEMORRHAGE Status: Acute (4) Chorioamnionitis Code(s): O41.1290 - CHORIOAMNIONITIS, UNSP TRIMESTER, NOT APPLICABLE OR UNSP Status: Acute - Assessment/Plan s/p CD: doing well, no narcotics since yesterday. plan for dc and follow up with me tomorrow afternoon at [facility] chorio: antibiotics off and AF, no s/s of infection f/u discussed in detail.
[2019-03-13 17:11] VITALS: BP 149/91
== END 2019-03-13 18:00 | disposition home or self-care (01) | DRG 786 ==
LOC: L&D/OP 10:53 → L&D 14:26 → 3SE 03-11
PROVIDERS: ADMIT Family Medicine; ATTEND Family Medicine
PROC: 10D00Z1 Extraction of Products of Conception, Low, Open Approach (ICD-10-PCS; principal; 2019-03-10)
DX: O48.0 Post-term pregnancy (principal); O41.1230 Chorioamnionitis, third trimester, not applicable or unspecified; O72.1 Other immediate postpartum hemorrhage; Z3A.40 40 weeks gestation of pregnancy; O62.0 Primary inadequate contractions; Z37.0 Single live birth
CPT/HCPCS: 36415; 51702; 82805; 84112; 85025; 85027; 86762; 86780; 86850; 86900; 86901; 87340; 99285; J0171; J0290; J0456; J0595; J0670; J1100; J1200; J1580; J1885; J2001; J2274; J2405; J2590; J3010; J3490; J7050; S0020